=== PATIENT | female | born 1975 | race Caucasian/White ===

== ENCOUNTER 2022-04-21 11:08 | Day surgery (SDC) | payer OTHER ==
[2022-04-20 13:49] VITALS: BMI 29.9
[2022-04-21] MEDS ORDERED: PROPOFOL 20 ML ONE ×3 (12:17)
[2022-04-21 12:54] VITALS: TEMP 97
[2022-04-21 13:04] VITALS: BP 112/70; PULSE 80
== END 2022-04-21 13:12 | disposition home or self-care (01) ==
LOC: FASU-ENDO 11:08
PROVIDERS: ATTEND Internal Medicine Gastroenterology
PROC: 0DBM8ZX Excision of Descending Colon, Via Natural or Artificial Opening Endoscopic, Diagnostic (ICD-10-PCS; principal; 2022-04-21 12:18)
DX: D12.4 Benign neoplasm of descending colon (principal); K64.1 Second degree hemorrhoids; K57.30 Diverticulosis of large intestine without perforation or abscess without bleeding; K92.1 Melena
CPT/HCPCS: 84703; 88305-TC